=== PATIENT | male | born 1960 | race Caucasian/White ===

== ENCOUNTER 2016-04-14 20:06 | Observation (INO) | payer OTHER ==
--- NOTE | ~2016-04-14 | OP ---
Record Of Operation [facility] [address] [place]. [address] NAME: BRENT DASILVA : 58 STATUS : DIS IN PAT#: [id number] AGE: 55 ADM/REG DATE : 04/14/16 MR#: [id number] REPORT SERV DATE: 04/17/16 DICTATED BY: ROXANNE ROGER DATE: 04/16/16 REPORT STATUS : Draft TRANSCRIBED BY: MODL DATE: 04/16/16 DATE OF PROCEDURE: 04/15/2016 PREOPERATIVE DIAGNOSES: 1. Acute appendicitis. 2. Umbilical hernia. POSTOPERATIVE DIAGNOSES: 1. Acute appendicitis. 2. Umbilical hernia. PROCEDURES: Laparoscopic appendectomy. Open umbilical hernia repair. ATTENDING SURGEON: Dr. Paulie Roger. RESIDENT SURGEON: Kae Moeller MD ANESTHESIA: General endotracheal anesthesia and local anesthesia. SPECIMENS: Appendix. BLOOD LOSS: 50 mL. IV FLUIDS: 2000 mL crystalloid. COMPLICATIONS: None. INDICATION: Mr. Dasilva is a 55-year-old male who presented to the emergency room complaining of abdominal pain of 2 days duration. On workup, he was found to have physical exam, laboratory findings, and imaging consistent with acute appendicitis. He was offered laparoscopic cholecystectomy. Risks and benefits were discussed with the patient as well as alternatives. Questions were sought and answered, and the patient wished to proceed. DESCRIPTION OF OPERATION: The patient brought to the operating room and placed supine on the operating table. After the satisfactory induction of general endotracheal anesthesia, the patient's abdomen was prepped and draped in the usual sterile fashion. A time-out was performed with all operating staff present. The patient received appropriate preoperative antibiotics. We began by injecting the area around the umbilicus with local anesthesia and then we made a longitudinal midline incision through the inferior portion of the umbilicus and dissected down to the fascia using a combination of blunt dissection and Bovie electrocautery. The patient had a small hernia defect, which we were able to pass the Yuliana through and spread and then placed the 11 mm trocar in the fascia and a Zachery. The abdomen was then insufflated to a pressure of 15 mmHg with carbon dioxide gas. Then a laparoscope was inserted and the intraabdominal contents were inspected for any injury during trocar placement and none were noted. We then placed the patient into the Trendelenburg right-side up position. Two more 5 mm trocars were placed, 1 in the right upper quadrant and 1 in the Record Of Operation [facility] [address] [place]. [address] NAME: BRENT DASILVA : 58 STATUS : DIS IN PAT#: [id number] AGE: 55 ADM/REG DATE : 04/14/16 MR#: [id number] REPORT SERV DATE: 04/17/16 DICTATED BY: ROXANNE ROGER DATE: 04/16/16 REPORT STATUS : Draft TRANSCRIBED BY: VAHID DATE: 04/16/16 left mid abdomen just below the umbilicus. Prior to each trocar placement, the skin was anesthetized with local anesthesia and incision made with a scalpel and then the trocar placed under direct visualization of the laparoscope. We turned our attention to the right lower quadrant. Using Prestige graspers, we were able to identify the appendix which appeared inflamed as well as having a thickened tip. Some flimsy attachments were taken down bluntly and the appendix was able to be elevated using a Britney dissector. Using a Britney dissector, a window was made at the base of the mesentery at the base of the appendix. We then used a laparoscopic GRAEME stapler with a blue load to divide the appendix at the base. Similarly, we then divided the mesoappendix using a white load stapler. Following this, the appendix was placed into a laparoscopic retrieval bag. We then flushed irrigation on the right side of the abdomen and suctioned this with thrombin suction. The abdomen was inspected for hemostasis and it was felt to be good. We then watched using the laparoscopic camera as we removed the two 5 mm ports under direct visualization with the laparoscope. Finally, the umbilical trocar was removed and passed off the table as specimen and the appendix was also removed from the abdomen at this time and passed off the table as specimen. The umbilicus was irrigated with normal saline and then the fascial edges of the the umbilical port site were reapproximated using 0 Vicryl and a UR6 in [id number] fashion. All incisions were again irrigated and then skin edges were reapproximated using 4 0 Monocryl in simple subcuticular interrupted fashion. Sterile dressings were placed. The patient was able to tolerate the procedure well and transferred to PACU in stable condition. DICTATED BY: Kae Moeller MD SE/MODL Roxanne Roger MD / [id number] CC: MD Alton Jay Jr., D.OKaren Roger MD
--- NOTE | ~2016-04-14 | HP ---
History And Physical [place] [id number] [facility] [place]. [address] NAME: BRENT DASILVA : 58 STATUS : ADM IN [facility]#: [id number] AGE: 55 ADM/REG DATE : 04/14/16 MR#: [id number] REPORT SERV DATE: 04/15/16 DICTATED BY: ROXANNE ROGER DATE: 04/15/16 REPORT STATUS : Draft TRANSCRIBED BY: MODL DATE: 04/15/16 DATE OF ADMISSION: 04/14/2016 CHIEF COMPLAINT: Abdominal pain. HISTORY OF PRESENT ILLNESS: This is a 55-year-old male, who presented to the [facility] Emergency Room complaining of abdominal pain that began at 1400 on 04/14, and it started as a vague periumbilical pain, which he thought was bad indigestion. He attempted to take both Pepto-Bismol as well as Rolaids without relief. The pain then localized to the right lower quadrant. He states that he also had a bowel movement at around the same time as the pain began in the periumbilical area. This was normal for him. This morning, he is complaining only of a headache, which he believes might be secondary to the morphine as well as the pain being unrelieved by the morphine. Endorsed anorexia but denies any other constitutional symptoms. PAST MEDICAL HISTORY: Includes hypothyroidism and dyslipidemia. PAST SURGICAL HISTORY: Includes removal of the left thyroid lobe for a nodule which was benign, left open inguinal hernia repair 20 years ago as well as some prior knee surgery. MEDICATIONS: Include Synthroid, aspirin, and atorvastatin. ALLERGIES: NO KNOWN DRUG ALLERGIES. SOCIAL HISTORY: No alcohol, tobacco, or drug use. REVIEW OF SYSTEMS: A comprehensive review of systems was performed, it was negative except as noted in the HPI. PHYSICAL EXAMINATION: VITAL SIGNS: Temperature 99.9, blood pressure 135/69, pulse of 87, respirations 16, saturating 97% on room air. GENERAL: This is a well-developed, well-nourished, middle-aged male, in no acute distress. CARDIOVASCULAR: Regular rate and rhythm. No murmurs, rubs, or gallops. LUNGS: Clear to auscultation bilaterally. No rhonchi. No wheeze. ABDOMEN: Soft and nondistended. He is tender to palpation in the right lower quadrant with focal rebound tenderness and localized peritonitis. He does have a positive Rovsing sign and a reducible small umbilical hernia. I do not appreciate any masses, pulsatile or otherwise; and the patient does not have generalized peritonitis. EXTREMITIES: The patient is able to move all four of his extremities equally. VASCULAR: He has 2+ bilateral radial and dorsalis pedis pulses. NEUROLOGIC: Cranial nerves 2 through 12 are grossly intact, and there are no focal neurological deficits. LABORATORY DATA: White blood cells 15, hemoglobin 14.6, hematocrit 41.6, platelets of 253, 83.5% neutrophils. Sodium 142, potassium 4.0 chloride 106, CO2 of 26, BUN 22, creatinine History And Physical [address] [address] NAME: BRENT DASILVA : 58 STATUS : ADM IN [facility]#: [id number] AGE: 55 ADM/REG DATE : 04/14/16 MR#: [id number] REPORT SERV DATE: 04/15/16 DICTATED BY: ROXANNE ROGER [place] DATE: 04/15/16 REPORT STATUS : Draft TRANSCRIBED BY: MODL DATE: 04/15/16 0.9, and glucose of 88. Calcium 9.2, total protein 7.6, albumin 4.1, ALT 36, AST 26, alkaline phosphatase 86, t-bilirubin 0.7. Lipase of 112. The urinalysis was performed and it was negative. CT shows a thickened appendix up to 15 mm as well as periappendiceal stranding consistent with acute appendicitis. There is no evidence of any abscess or free fluid. ASSESSMENT AND PLAN: A 55-year-old male with acute appendicitis and focal peritonitis. He has already been placed on antibiotics. We will continue those as well as IV fluids. Continue to make him n.p.o. and perform a laparoscopic appendectomy today. Risks, benefits, alternatives were discussed with the patient including, but not limited to, bleeding, infection, damage to the intestines or blood vessels, and possible need for conversion to open procedure. We will also plan to repair his umbilical hernia at the time of the procedure. This patient was discussed with Dr. Roger, who agrees. DICTATED BY: Kae Moeller MD SE/VAHID Roxanne Roger MD / [id number]
[2016-04-14 20:54] LABS: BASOPHILS 0.2 %; BASOPHILS ABSOLUTE 0.03 10/3/uL (0.0-0.16); EOSINOPHILS 1.1 %; EOSINOPHILS ABSOLUTE 0.16 10/3/uL (0.0-0.53); ER CBC TAT 0 Hrs 05 Mins; HEMATOCRIT 41.6 % (40.0-51.0); HEMOGLOBIN 14.6 g/dL (13.6-17.8); IMMATURE GRANULOCYTES 0.3 %; IMMATURE GRANULOCYTES ABSOLUTE 0.05 10/3/uL (0.0-0.11); LYMPHOCYTES 8.5 %; LYMPHOCYTES ABSOLUTE 1.27 10/3/uL (0.67-4.30); MANUAL DIFF NO %; MEAN CORPUS HGB CONC 35.1 g/dL (32.0-36.0); MEAN CORPUSCULAR VOLUME 82.7 fL (80-100); MEAN PLATELET VOLUME 10.3 fL (9.2-13.0); MONOCYTES 6.4 %; MONOCYTES ABSOLUTE 0.96 10/3/uL (0.21-1.20); NEUTROPHILS 83.5 %; PLATELET COUNT 253 10/3/uL (150-400); RBC DISTRIBUTION WIDTH 13.4 % (12.0-16.0); RED CELL COUNT 5.03 10/6/uL (4.7-6.1)
[2016-04-14 21:11] LABS: A/G RATIO 1.2 (0.7-1.9); ALBUMIN 4.1 G/DL (3.5-5.0); ALKALINE PHOSPHATASE 86 U/L (45-117); BUN (BLOOD UREA NITROGEN) 22 MG/DL (6-23); CALCIUM, SERUM 9.2 MG/DL (8.5-10.4); CHLORIDE, SERUM 106 MMOL/L (96-112); CO2 (CARBON DIOXIDE) 26 MMOL/L (24-34); CREATININE 0.98 MG/DL (0.70-1.30); DIRECT BILIRUBIN 0.1 MG/DL (0.0-0.4); GFR AFRICAN AMERICAN 99 ML/MIN (>=60); GFR NON AFRICAN AMERICAN 86 ML/MIN (>=60); GLOBULIN 3.5 G/DL (2.5-4.1); GLUCOSE, SERUM 88 MG/DL (60-99); INDIRECT BILIRUBIN(NOT ORDER) 0.6 MG/DL (0.1-0.9); SGPT(ALT) 36 U/L (5-65); SODIUM, SERUM 142 MMOL/L (135-148); TOTAL BILIRUBIN 0.7 MG/DL (0-1.2); TOTAL PROTEIN 7.6 G/DL (6.0-8.5)
[2016-04-14 21:12] LABS: SGOT(AST) 26 U/L (5-40)
[2016-04-14] MEDS ORDERED: ASAB PO (21:46)
[2016-04-14] MEDS ORDERED: ROLAIDS PO (21:47)
[2016-04-14] MEDS ORDERED: SYN075 PO (21:48)
[2016-04-14] MEDS ORDERED: LIPITOR10 PO (21:48)
[2016-04-14] MEDS ORDERED: PEPTO BISMOL LIQ1 ML PO (21:48)
[2016-04-14 23:37] LABS: ASCORBIC ACID (UR NOT ORDER) NEG (NEG); BILIRUBIN, URINE NEGATIVE (NEG); ER URINALYSIS TAT 0 Hrs 00 Mins; KETONE, URINE NEGATIVE (NEG); LEUKOCYTE ESTERASE(NOT OR NEG (NEG); NITRITE (URINE) NEG (NEG); WBC (NOT ORDERED) (RFLEX) < 1 (0-5)
== END 2016-04-15 22:36 | disposition home or self-care (01) ==
LOC: ER 20:06 → 5SO 22:23
PROVIDERS: Hospitalist; Surgery
PROC: 0WQF0ZZ Repair Abdominal Wall, Open Approach (ICD-10-PCS; 2016-04-15)
PROC: 0DTJ4ZZ Resection of Appendix, Percutaneous Endoscopic Approach (ICD-10-PCS; principal; 2016-04-15 12:45)
DX: K35.80 Unspecified acute appendicitis (principal); K42.9 Umbilical hernia without obstruction or gangrene; E78.00 Pure hypercholesterolemia, unspecified; E03.9 Hypothyroidism, unspecified; E78.5 Hyperlipidemia, unspecified; Z98.890 Other specified postprocedural states; Z79.82 Long term (current) use of aspirin; Z79.899 Other long term (current) drug therapy
CPT/HCPCS: 74176; 80053; 81001; 82248; 83690; 85025; 88304; 93005; 96375; 96376; 99285; A9270-GY; G0378; J0295; J2250; J2405; J2710; J3010